=== PATIENT | male | born 1980 | race African-American/Black ===

== ENCOUNTER 2016-11-27 07:48 | Emergency (ER) | payer SELFPAY ==
[~2016-11-27] VITALS: Ht 175.3 cm; Wt 81.0 kg
[2016-11-27] MEDS ORDERED: KETOROLAC 60MG/2ML VIAL IM ONE (11:30)
[2016-11-27 13:15] VITALS: BP 120/84
== END 2016-11-27 13:35 | disposition home or self-care (01) ==
LOC: ER 07:48
DX: S60.221A Contusion of right hand, initial encounter (principal); X58.XXXA Exposure to other specified factors, initial encounter; Y93.89 Activity, other specified; Y99.8 Other external cause status; Y92.89 Other specified places as the place of occurrence of the external cause
CPT/HCPCS: 29125; 73130; 96372; 99284; J1885